=== PATIENT | female | born 1955 | race Caucasian/White ===

== ENCOUNTER 2024-11-14 10:22 | Outpatient (AMB) | payer OTHER, MEDICAID, SELFPAY ==
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
== END 2024-11-14 11:15 | disposition home or self-care (01) ==
LOC: HO.HSM 10:23
PROVIDERS: PCP Internal Medicine; Referring Provider Internal Medicine; Visit Provider Registered Nurse
DX: G43.909 Migraine, unspecified, not intractable, without status migrainosus (principal)
CPT/HCPCS: 99214